=== PATIENT | male | born 1970 | race Caucasian/White ===

== ENCOUNTER 2024-05-26 07:17 | Emergency (ER) | payer BC ==
[~2024-05-26] VITALS: Ht 170.2 cm; Wt 93.0 kg
[2024-05-26 07:21] VITALS: PULSE 95; RESP 20; TEMP 97.7; O2SAT 99
[2024-05-26 07:50] VITALS: O2SAT 96
[2024-05-26] MEDS: NACL 0.9% 1,000 ML IV ONE (07:57)
[2024-05-26] MEDS: THIAMINE 200 MG/2 ML VIAL IV ONE (08:00)
[2024-05-26 08:14] LABS: BASOPHILS % (AUTO) 0.6 % (0.0-2.0); EOSINOPHILS # (AUTO) 0.1 K/uL (0-0.4); EOSINOPHILS % (AUTO) 1.8 % (0.0-4.0); HEMATOCRIT 44.6 % (36-52); HEMOGLOBIN 15.1 g/dL (12.0-18.0); LYMPHOCYTES # (AUTO) 0.8 K/uL (2.0-11.5); MEAN CORPUSCULAR HEMOGLOBIN 29 pg (27-31); MEAN CORPUSCULAR HGB CONC 34 g/dL (33-37); MEAN CORPUSCULAR VOLUME 86.5 fL (80-94); MONOCYTES # (AUTO) 0.5 K/uL (0.8-1.0); MONOCYTES % (AUTO) 7.9 % (1.7-9.3); NEUTROPHILS # (AUTO) 4.7 K/uL (1.8-7.7); NEUTROPHILS % (AUTO) 76.7 % (42.2-75.2); PLATELET COUNT (AUTO) 182 K/uL (140-450); RED BLOOD CELL COUNT(AUTO) 5.16 MIL/uL (4.20-6.10); RED CELL DISTRIBUTION WIDTH 13.3 % (11.6-13.7); WHITE BLOOD COUNT (AUTO) 6.1 K/uL (4.8-10.8)
[2024-05-26 08:24] LABS: ANION GAP 10.1 (8-16); CALCIUM 9.4 mg/dL (8.5-10.1); CARBON DIOXIDE 31.9 mmol/L (21-32); CREATININE 1.1 mg/dL (0.6-1.3)
[2024-05-26 08:27] LABS: PHOSPHORUS 3.1 mg/dL (2.5-4.9)
[2024-05-26] MEDS: POTASSIUM CHLORIDE 10 MEQ TABER PO ONE (08:43)
[2024-05-26 08:45] LABS: ALBUMIN 3.2 g/dL (3.4-5.0); BILIRUBIN,DIRECT 0.3 mg/dL (0.0-0.3); TOTAL PROTEIN, SERUM 7.2 g/dL (6.4-8.2)
[2024-05-26 09:57] VITALS: O2SAT 96
[2024-05-26 10:35] VITALS: BP 125/74; PULSE 80; RESP 20; TEMP 98.1; O2SAT 95
[2024-05-26] MEDS ORDERED: AZIT250T3 PO (11:15)
[2024-05-26] MEDS ORDERED: AMOX1TAB8 PO (11:15)
[2024-05-26] MEDS: KETOROLAC 30 MG/ML VIAL IVP ONE (11:25)
== END 2024-05-26 11:56 | disposition home or self-care (01) ==
LOC: MED 07:17
DX: R07.89 Other chest pain (principal); M54.9 Dorsalgia, unspecified; R06.02 Shortness of breath; E86.0 Dehydration; F10.10 Alcohol abuse, uncomplicated; Y90.9 Presence of alcohol in blood, level not specified; J18.8 Other pneumonia, unspecified organism; Z79.2 Long term (current) use of antibiotics
CPT/HCPCS: 36415; 71045; 80048; 80076; 83735; 83880; 84100; 84484; 85025; 93005; 96361; 96374; 96375; 99285; J1885; J3411; J7030; Q0092